=== PATIENT | male | born 1950 | race Caucasian/White ===

== ENCOUNTER 2017-10-14 09:39 | Inpatient (IN) | payer MEDICARE ==
[2017-10-14] VITALS (8 sets, daily range): BP systolic 114–162; BP diastolic 71–96
[~2017-10-14] VITALS: Ht 175.3 cm; Wt 89.8 kg
[2017-10-14] MEDS ORDERED: METOPROLOL 1 MG/ML, 5ML IVPush PRN (10:30)
[2017-10-14] MEDS ORDERED: ASPIRIN 81 MG TABLET CHEW PO ONE (10:30)
[2017-10-14 10:39] LABS: BASOPHILS # (AUTO) 0.05 x10^3/uL (0-0.1); BASOPHILS % (AUTO) 1 % (0-1); EOSINOPHILS # (AUTO) 0.19 x10^3/uL (0-0.4); EOSINOPHILS % (AUTO) 4 % (1-7); LYMPHOCYTES # (AUTO) 1.01 x10^3/uL (1-3.4); LYMPHOCYTES % (AUTO) 21 % (22-44); MD NO; MEAN CORPUSCULAR HEMOGLOBIN 31.6 pg (27.5-34.5); MEAN CORPUSCULAR HGB CONC 34.1 g/dL (33.2-36.2); MEAN CORPUSCULAR VOLUME 92.7 fL (81-97); MONOCYTES # (AUTO) 0.33 x10^3/uL (0.2-0.8); MONOCYTES % (AUTO) 7 % (2-9); NEUTROPHILS # (AUTO) 3.27 x10^3/uL (1.8-6.8); NEUTROPHILS % (AUTO) 67 % (42-75); PLATELET COUNT 232 x10^3/uL (130-400); RED BLOOD COUNT 4.73 x10^6/uL (4.38-5.82)
[2017-10-14 10:41] LABS: INTERNATIONAL NORMALIZED RATIO 1.08 (0.93-1.1); PROTHROMBIN TIME 11.1 Seconds (9.6-11.5)
[2017-10-14] MEDS ORDERED: METOPROLOL 1 MG/ML, 5ML ONE (10:43)
[2017-10-14] MEDS ORDERED: ASPIRIN 81 MG TABLET CHEW ONE (10:43)
[2017-10-14 10:46] LABS: ALANINE AMINOTRANSFERASE 40 U/L (12-78); ALBUMIN 3.5 g/dL (3.4-5.0); ANION GAP 4 mmol/L (5-15); CALCIUM 8.7 mg/dL (8.5-10.1); CHLORIDE 106 mmol/L (98-107); CREATININE 1.01 mg/dL (0.7-1.3)
[2017-10-14 10:51] LABS: ALKALINE PHOSPHATASE 62 U/L (45-117); BILIRUBIN,TOTAL 0.7 mg/dL (0.2-1.0); TOTAL PROTEIN 6.7 g/dL (6.4-8.2); TROPONIN I < 0.015 ng/mL (0.000-0.045)
[2017-10-14 10:56] LABS: THYROID STIMULATING HORMONE 0.519 mIU/L (0.358-3.740)
[2017-10-14] MEDS ORDERED: ONDANSETRON 2MG/ML, 2ML IVPush PRN (12:00)
[2017-10-14] MEDS ORDERED: TEMAZEPAM 15 MG CAPSULE PO PRN (12:00)
[2017-10-14] MEDS ORDERED: ACETAMINOPHEN 325 MG TABLET PO PRN (12:00)
[2017-10-14] MEDS ORDERED: morphine SULFATE 10 MG/ML, 1ML IVPush PRN (12:00)
[2017-10-14] MEDS ORDERED: HYDROcodone/APAP 5/325 TABLET PO PRN (12:00)
[2017-10-14] MEDS ORDERED: hydrALAzine 20 MG/ML, 1ML IVPush PRN (12:00)
[2017-10-14] MEDS ORDERED: GADOBUTROL 10 MMOL/10 ML PFS ONE (12:09)
[2017-10-14] MEDS: ENOXAPARIN 40 MG/0.4 ML SQ SCH (14:00)
[2017-10-14] MEDS: METOPROLOL TARTRATE 25 MG TABLET PO SCH (20:09)
[2017-10-14 20:18] LABS: TROPONIN I < 0.015 ng/mL (0.000-0.045)
[2017-10-14 21:42] LABS: MICROSCOPIC NOT IND
[2017-10-14 21:45] LABS: CULTURE INDICATED? NO
[2017-10-15 02:59] VITALS: BP 121/74
[2017-10-15] MEDS: METOPROLOL TARTRATE 25 MG TABLET PO SCH ×2 (03:19→11:33)
[2017-10-15 04:42] LABS: BASOPHILS # (AUTO) 0.04 x10^3/uL (0-0.1); BASOPHILS % (AUTO) 1 % (0-1); EOSINOPHILS # (AUTO) 0.33 x10^3/uL (0-0.4); EOSINOPHILS % (AUTO) 7 % (1-7); LYMPHOCYTES # (AUTO) 1.36 x10^3/uL (1-3.4); LYMPHOCYTES % (AUTO) 29 % (22-44); MD NO; MEAN CORPUSCULAR HGB CONC 34.4 g/dL (33.2-36.2); MEAN PLATELET VOLUME 8.1 fL (7.4-10.4); MONOCYTES # (AUTO) 0.43 x10^3/uL (0.2-0.8); MONOCYTES % (AUTO) 9 % (2-9); NEUTROPHILS # (AUTO) 2.55 x10^3/uL (1.8-6.8); NEUTROPHILS % (AUTO) 54 % (42-75); PLATELET COUNT 240 x10^3/uL (130-400); RED BLOOD COUNT 4.65 x10^6/uL (4.38-5.82); RED CELL DISTRIBUTION WIDTH 12.9 % (9.4-14.8)
[2017-10-15 04:53] LABS: ALANINE AMINOTRANSFERASE 36 U/L (12-78); ALBUMIN 3.3 g/dL (3.4-5.0); ANION GAP 7 mmol/L (5-15); CALCIUM 8.5 mg/dL (8.5-10.1); CHLORIDE 106 mmol/L (98-107)
[2017-10-15 04:56] LABS: ALKALINE PHOSPHATASE 57 U/L (45-117); BILIRUBIN,TOTAL 0.5 mg/dL (0.2-1.0); CHOL/HDL RATIO 3.6; CHOLESTEROL, TOTAL 153 mg/dL (140-239); CREATININE 0.96 mg/dL (0.7-1.3); HDL CHOL % 28 % (26-37); HDL CHOLESTEROL (DIRECT) 43 mg/dL (40-60); LDL CHOLESTEROL,CALCULATED 95 mg/dL (54-169); LDL/HDL RATIO 2.2 (0.5-3.0); TOTAL PROTEIN 6.8 g/dL (6.4-8.2); TRIGLYCERIDES 73 mg/dL (50-200); TROPONIN I < 0.015 ng/mL (0.000-0.045); VLDL CHOLESTEROL 15 mg/dL (0-25)
[2017-10-15 05:04] LABS: HEMOGLOBIN A1C 5.3 % (4.2-6.3)
[2017-10-15] MEDS ORDERED: ASPIRIN 325 MG TABLET PO SCH (06:00)
[2017-10-15 08:01] VITALS: BP 129/85
[2017-10-15] MEDS ORDERED: REGADENOSON 0.4 MG/5 ML SYRINGE ONE (08:06)
[2017-10-15] MEDS: ENOXAPARIN 40 MG/0.4 ML SQ SCH (12:31)
[2017-10-15 13:50] VITALS: BP 105/61
[2017-10-15] MEDS ORDERED: METO25TA35 PO (16:26)
[2017-10-15] MEDS ORDERED: ASPI325T17 PO (16:26)
[2017-10-15] MEDS ORDERED: SIMV40TA PO (16:30)
[2017-10-15] MEDS ORDERED: METOPROLOL TARTRATE 25 MG TABLET PO SCH (21:00)
== END 2017-10-15 17:25 | disposition home or self-care (01) | DRG 309 ==
LOC: ED 10:44 → EDIP 10:53 → 5SO 12:39 → DCLOUNGE 10-15 17:00
PROVIDERS: ADMIT Hospitalist; ATTEND Internal Medicine
DX: I48.92 Unspecified atrial flutter (principal); I67.89 Other cerebrovascular disease; I48.0 Paroxysmal atrial fibrillation; R73.9 Hyperglycemia, unspecified; E78.5 Hyperlipidemia, unspecified; I10 Essential (primary) hypertension; R42 Dizziness and giddiness; F32.9 Major depressive disorder, single episode, unspecified; I67.9 Cerebrovascular disease, unspecified; Z79.82 Long term (current) use of aspirin; Z79.899 Other long term (current) drug therapy; Z87.891 Personal history of nicotine dependence; Z96.619 Presence of unspecified artificial shoulder joint
CPT/HCPCS: 36415; 70553; 71045; 78452; 80053; 80061; 81003; 83036; 83735; 84100; 84443; 84484; 85025; 85610; 93005; 93017; 93306; 93880; 96374; A9585; J2785; A9502; C9898

== ENCOUNTER → 2018-11-10 | Outpatient (CLI) | payer MEDICARE, OTHER ==
[~2018-11-10] MED LIST: ASPI325T17 PO; METO25TA35 PO; SIMV40TA PO
== END | disposition home or self-care (01) ==
LOC: CFH 09:29
PROVIDERS: ATTEND Family Medicine
DX: M25.551 Pain in right hip (principal); M47.816 Spondylosis without myelopathy or radiculopathy, lumbar region